=== PATIENT | female | born 1985 | race Caucasian/White ===

== ENCOUNTER 2017-06-07 15:17 | Inpatient (IN) | payer MEDICAID ==
[~2017-06-07] VITALS: Ht 160 cm; Wt 70.4 kg
[2017-06-14] MEDS ORDERED: OXYTOCIN 30U/ 0.9% NaCL 500ML 500 ML IV ONE (06:02)
[2017-06-14 06:12] VITALS: BP 108/68
[2017-06-14] MEDS ORDERED: PREN-3 PO (06:19)
[2017-06-14] MEDS ORDERED: FENTANYL PF 100 MCG/2ML IV PRN (06:30)
[2017-06-14] MEDS ORDERED: FENTANYL PF 100 MCG/2ML IVPush PRN (06:30)
[2017-06-14] MEDS ORDERED: ONDANSETRON 2MG/ML, 2ML IVPush PRN (06:30)
[2017-06-14] MEDS: LACTATED RINGERS 1,000 ML IV SCH ×4 (06:38→19:19)
[2017-06-14] MEDS ORDERED: NEWBORN KIT ONE (06:57)
[2017-06-14] MEDS ORDERED: KETOROLAC 30 MG/1 ML ONE (11:06)
[2017-06-14] MEDS ORDERED: OXYTOCIN 10 UNITS/ML, 1ML ONE (11:06)
[2017-06-14] MEDS ORDERED: FENTANYL PF 100 MCG/2ML ONE (13:02)
[2017-06-14] MEDS ORDERED: CALCIUM CARBONATE 500 MG TAB.CHEW ONE ×2 (13:02→18:13)
[2017-06-14] MEDS: CALCIUM CARBONATE 500 MG TAB.CHEW PO PRN ×2 (13:04→18:14)
[2017-06-14] MEDS ORDERED: OXYTOCIN 30U/ 0.9% NaCL 500ML 500 ML ONE (14:54)
[2017-06-14] MEDS ORDERED: MISOPROSTOL 200 MCG TABLET ONE (14:54)
[2017-06-14] MEDS ORDERED: LIDOCAINE 1%, 20ML ONE (14:54)
[2017-06-14] MEDS ORDERED: OXYTOCIN 30U/ 0.9% NaCL 500ML 500 ML IV PRN (17:59)
[2017-06-14] MEDS ORDERED: LIDOCAINE/PF 1.5%-EPI 1:200K, 30ML ONE (18:28)
[2017-06-14] MEDS ORDERED: FENTANYL/BUPIV./NS/PF 250 ML EPIDCONT ONE (18:28)
[2017-06-14] MEDS ORDERED: FENTANYL/BUPIV./NS/PF 250 ML EPIDCONT SCH (19:19)
[2017-06-14] MEDS ORDERED: NALOXONE 0.4 MG/ML, 1ML IVPush PRN (19:30)
[2017-06-14] MEDS ORDERED: LACTATED RINGERS 1,000 ML IVBOLUS PRN (19:30)
[2017-06-14] MEDS: EPHEDRINE 50 MG/ML, 1ML IVPush PRN (19:42)
[2017-06-14] MEDS: D5%-LACTATED RINGERS 1,000 ML IV SCH (19:52)
[2017-06-15] MEDS: LACTATED RINGERS 1,000 ML IV SCH ×7 (00:08→20:25)
[2017-06-15] MEDS: EPHEDRINE 50 MG/ML, 1ML IVPush PRN (00:54)
[2017-06-15] MEDS ORDERED: OXYTOCIN 30U/ 0.9% NaCL 500ML 500 ML IV SCH (02:26)
[2017-06-15] MEDS ORDERED: LACTATED RINGERS 1,000 ML IV SCH ×2 (02:26→02:30)
[2017-06-15] MEDS ORDERED: METOCLOPRAMIDE 5 MG/ML, 2ML ONE ×2 (02:27→11:06)
[2017-06-15] MEDS ORDERED: SODIUM CITRATE/CITRIC ACID 30 ML UDC ONE (02:27)
[2017-06-15] MEDS ORDERED: MISOPROSTOL 200 MCG TABLET ONE (02:28)
[2017-06-15] MEDS ORDERED: METOCLOPRAMIDE 5 MG/ML, 2ML IV ONE (02:30)
[2017-06-15] MEDS ORDERED: SODIUM CITRATE/CITRIC ACID 30 ML UDC PO ONE (02:30)
[2017-06-15] MEDS ORDERED: LACTATED RINGERS 1,000 ML IVBOLUS ONE (02:30)
[2017-06-15] MEDS ORDERED: LIDOCAINE/MPF 2%-EPI 1:200K, 20 ML ONE (02:36)
[2017-06-15] MEDS ORDERED: FENTANYL PF 100 MCG/2ML ONE ×2 (02:36→04:41)
[2017-06-15] MEDS ORDERED: FENTANYL PF 100 MCG/2ML IVPush PRN (03:13)
[2017-06-15] MEDS: D5%-LACTATED RINGERS 1,000 ML IV SCH (03:46)
[2017-06-15] MEDS: OXYTOCIN 30U/ 0.9% NaCL 500ML 500 ML IV SCH ×2 (04:25→14:25)
[2017-06-15] MEDS ORDERED: DIPH,PERTUSS(ACELL),TET VAC/PF NC IM-VACC PRN (04:30)
[2017-06-15] MEDS ORDERED: ONDANSETRON 2MG/ML, 2ML IV PRN ×2 (04:30→05:00)
[2017-06-15] MEDS ORDERED: METHYLERGONOVINE 0.2 MG/ML IM PRN (04:30)
[2017-06-15] MEDS ORDERED: ACETAMINOPHEN 325 MG TABLET PO PRN (04:30)
[2017-06-15] MEDS: FENTANYL PF 100 MCG/2ML IVPush PRN ×2 (04:59→05:11)
[2017-06-15] MEDS ORDERED: OXYcodone 5 MG/5 ML ORAL.SOL UDC PO PRN (05:00)
[2017-06-15] MEDS ORDERED: ONDANSETRON 2MG/ML, 2ML ONE (05:23)
[2017-06-15] MEDS ORDERED: MORPHINE SULFATE 4 MG/ML, 1ML ONE (06:40)
[2017-06-15] MEDS: morphine SULFATE 10 MG/ML, 1ML IV PRN ×2 (06:44→06:50)
[2017-06-15 07:30] VITALS: BP 100/64
[2017-06-15] MEDS: PRENATAL VIT/IRON/FA 1 EACH TABLET PO SCH (09:00)
[2017-06-15] MEDS: KETOROLAC 30 MG/1 ML IVPush SCH ×3 (11:06→23:37)
[2017-06-15] MEDS ORDERED: CEFAZOLIN 1,000 MG ONE (11:06)
[2017-06-15 11:30] VITALS: BP 96/62
[2017-06-15] MEDS: OXYcodone/APAP 5/325MG TABLET PO PRN ×3 (13:15→22:30)
[2017-06-15 16:00] VITALS: BP 100/67
[2017-06-15 19:45] VITALS: BP 107/70
[2017-06-15] MEDS: DOCUSATE 100 MG CAPSULE PO PRN (22:30)
[2017-06-15 23:35] VITALS: BP 87/58
[2017-06-16] MEDS: OXYTOCIN 30U/ 0.9% NaCL 500ML 500 ML IV SCH ×2 (00:25→10:25)
[2017-06-16] MEDS: LACTATED RINGERS 1,000 ML IV SCH ×4 (00:25→12:25)
[2017-06-16] MEDS: OXYcodone/APAP 5/325MG TABLET PO PRN ×4 (03:31→17:07)
[2017-06-16] MEDS: KETOROLAC 30 MG/1 ML IVPush SCH (04:30)
[2017-06-16 05:00] VITALS: BP 94/61
[2017-06-16] MEDS: PRENATAL VIT/IRON/FA 1 EACH TABLET PO SCH (08:16)
[2017-06-16] MEDS: DOCUSATE 100 MG CAPSULE PO PRN ×2 (08:17→21:34)
[2017-06-16 08:35] VITALS: BP 102/69
[2017-06-16] MEDS: SIMETHICONE 80 MG CHEW TAB PO PRN ×2 (08:41→17:07)
[2017-06-16] MEDS: IBUPROFEN 600 MG TABLET PO PRN ×3 (10:37→23:47)
[2017-06-16 20:00] VITALS: BP 103/71
[2017-06-16] MEDS ORDERED: OXYcodone IR 5MG TABLET PO PRN (21:30)
[2017-06-16] MEDS: OXYcodone IR 5MG TABLET PO PRN (21:34)
[2017-06-17] MEDS: IBUPROFEN 600 MG TABLET PO PRN ×3 (05:57→22:28)
[2017-06-17] MEDS: OXYcodone IR 5MG TABLET PO PRN (05:57)
[2017-06-17] MEDS: PRENATAL VIT/IRON/FA 1 EACH TABLET PO SCH (07:40)
[2017-06-17] MEDS: DOCUSATE 100 MG CAPSULE PO PRN ×2 (07:40→22:28)
[2017-06-17 08:30] VITALS: BP 104/65
[2017-06-17] MEDS: SIMETHICONE 80 MG CHEW TAB PO PRN ×2 (13:40→22:28)
[2017-06-17] MEDS: OXYcodone/APAP 5/325MG TABLET PO PRN (22:28)
[2017-06-18] MEDS: OXYcodone/APAP 5/325MG TABLET PO PRN (04:44)
[2017-06-18] MEDS: SIMETHICONE 80 MG CHEW TAB PO PRN (04:44)
[2017-06-18] MEDS: IBUPROFEN 600 MG TABLET PO PRN (04:45)
[2017-06-18 06:45] VITALS: BP 105/71
[2017-06-18] MEDS: DOCUSATE 100 MG CAPSULE PO PRN (09:00)
[2017-06-18] MEDS: PRENATAL VIT/IRON/FA 1 EACH TABLET PO SCH (09:00)
[2017-06-18] MEDS ORDERED: OXYC-302 PO (11:02)
[2017-06-18] MEDS ORDERED: FERR325T23 PO (11:03)
[2017-06-18] MEDS ORDERED: IBUP-1222 PO (11:03)
[2017-06-18] MEDS ORDERED: DOCU-30 PO (11:04)
== END 2017-06-18 14:00 | disposition home or self-care (01) | DRG 766 ==
LOC: LDIP 06-14 05:58 → 2NW 06-15 07:09
PROVIDERS: ADMIT Obstetrics & Gynecology; ATTEND Obstetrics & Gynecology
PROC: 10D00Z1 Extraction of Products of Conception, Low, Open Approach (ICD-10-PCS; principal; 2017-06-15)
PROC: 0UB70ZZ Excision of Bilateral Fallopian Tubes, Open Approach (ICD-10-PCS; 2017-06-15)
PROC: 3E0P7GC Introduction of Other Therapeutic Substance into Female Reproductive, Via Natural or Artificial Opening (ICD-10-PCS; 2017-06-15)
PROC: 0U7C7ZZ Dilation of Cervix, Via Natural or Artificial Opening (ICD-10-PCS; 2017-06-15)
PROC: 10907ZC Drainage of Amniotic Fluid, Therapeutic from Products of Conception, Via Natural or Artificial Opening (ICD-10-PCS; 2017-06-15)
DX: O34.211 Maternal care for low transverse scar from previous cesarean delivery (principal); O62.1 Secondary uterine inertia; O61.0 Failed medical induction of labor; Z37.0 Single live birth; Z3A.41 41 weeks gestation of pregnancy
CPT/HCPCS: 36415; 85025; 86850; 86900; 88302; J0690; J1885; J2405; J3010; J3490; J2270; J2590; J2765; J7120; J7121